=== PATIENT | male | born 1970 | race Caucasian/White ===

== ENCOUNTER → 2017-04-11 | Outpatient (CLI) | payer OTHER ==
[~2017-04-11] MED LIST: ACTONEL PO; BENICAR PO; VYTORIN PO
[2017-04-11 09:07] LABS: ALBUMIN SERUM 5.2 g/dL (3.5-5.0); ALKALINE PHOSPHATASE 46 U/L (32-92); ALT (SGPT) 41 U/L (10-40); AST (SGOT) 26 U/L (10-42); BILIRUBIN,TOTAL 0.5 mg/dL (0.2-2.0); BLOOD UREA NITROGEN 16 mg/dL (9-23); CALCIUM SERUM 9.4 mg/dL (8.4-10.2); CARBON DIOXIDE 28 mmol/L (22-31); CHLORIDE 106 mmol/L (100-111); CHOLESTEROL 151 mg/dL (0-200); GLOM FILT RATE Estimated 89.9 mL/min (>60); GLUCOSE FASTING 161 mg/dL (70-110); HDL CHOLESTEROL 51 mg/dL (29-75); LDL CHOLESTEROL 72 mg/dL (-130); LDL/HDL RATIO 1 RATIO (0-4); POTASSIUM 4.4 mmol/L (3.5-5.1); PROTEIN TOTAL SERUM 7.8 g/dL (6.0-8.3); SODIUM 138 mmol/L (135-145); TRIGLYCERIDES 139 mg/dL (10-160)
[2017-04-11 12:02] LABS: FOLATE (FOLIC ACID) >23.3 ng/mL (>5.8)
== END | disposition home or self-care (01) ==
LOC: SLAB 08:09
PROVIDERS: Internal Medicine Endocrinology, Diabetes & Metabolism
DX: E11.9 Type 2 diabetes mellitus without complications (principal); E88.81 Metabolic syndrome and other insulin resistance
CPT/HCPCS: 36415; 80053; 80061; 82607; 82746; 83036